=== PATIENT | female | born 1985 | race Caucasian/White ===

== ENCOUNTER 2016-11-16 18:59 | Emergency (ER) | payer OTHER ==
[~2016-11-16] VITALS: Ht 167.6 cm; Wt 105.5 kg
[~2016-11-16 18:59] MED LIST: AMOXICILLIN500 M1 PO; COMPLETENATE T1 EACH; CYMBALTA20 MG PO; FIORICET,ESG1 TABLET PO; FLONASE16 G1 BOTH NARES; Feosol PO; INDOCIN50 MG PO; LORTAB 5-325 M1 EACH PO; MOTRIN600 MG PO; MUCINEX600 MG PO; Motrin PO; NAPROSYN500 MG PO; NAPROXEN375 MG PO; NAPROXEN500 MG PO; NOHOMEMEDS; NORCO 7.5/321 TABLET PO; PEN-VEE K,VEET500 MG PO; PREDNISONE20 MG PO; PROMETHAZINE HC25 M1 PO; TESSALON PERLE100 MG PO; ULTRAM50 MG PO; VALIUM5 MG PO
[2016-11-16 23:11] LABS: MCH 29.6 PG (29.0-34.0); MCHC 33.9 G/DL (30.0-36.0); MCV 87.2 FL (83-99); MEAN PLAT.VOLUME 9.5 uM^3 (9.5-12.4); PLATELET COUNT 236 K/uL (156-360); RBC DIS.WIDTH-CV 13.3 % (11.8-14.6); RBC DIS.WIDTH-SD 40.9 % (39-53); RED BLOOD COUNT 3.21 M/uL (3.80-5.20); WHITE BLOOD COUNT 7.5 K/uL (4.1-10.2)
[2016-11-16 23:23] LABS: CHLORIDE 97 mEq/L (99-109); POTASSIUM 2.9 mEq/L (3.7-5.4); SODIUM 133 mEq/L (136-147)
[2016-11-16 23:24] LABS: GLUCOSE 117 mg/dL (70-99)
[2016-11-16 23:26] LABS: ANION GAP 12 MEQ/L (2-14)
[2016-11-16 23:28] LABS: GFR ESTIMATE (CALCULATED) > 59 mL/min/
[2016-11-16 23:29] LABS: UREA NITROGEN (BUN) 13 mg/dL (9-23)
[2016-11-17] MEDS ORDERED: FLEXERIL10 MG PO (00:14)
[2016-11-17] MEDS ORDERED: MOTRIN800 MG PO (00:34)
[2016-11-17 00:44] VITALS: BP 100/66
== END 2016-11-17 00:47 | disposition home or self-care (01) ==
LOC: EME 18:59 → EXP 18:59
PROVIDERS: Emergency Medicine
DX: M79.662 Pain in left lower leg (principal); E87.6 Hypokalemia; M25.512 Pain in left shoulder; T24.039 Burn of unspecified degree of unspecified lower leg; S90.81 Abrasion of foot; S70.01XD Contusion of right hip, subsequent encounter; S30.1XXD Contusion of abdominal wall, subsequent encounter; S80.12XD Contusion of left lower leg, subsequent encounter; S90 Superficial injury of ankle, foot and toes; V49.9XXD Car occupant (driver) (passenger) injured in unspecified traffic accident, subsequent encounter; Z48.00 Encounter for change or removal of nonsurgical wound dressing
CPT/HCPCS: 73030; 73630; 80048; 85027; 87040; 99281; 99284

== ENCOUNTER 2016-11-23 20:23 | Inpatient (IN) | payer OTHER ==
[~2016-11-23] VITALS: Ht 165.1 cm; Wt 109.5 kg
[~2016-11-23 20:23] MED LIST changes: +FLEXERIL10 MG PO; +MOTRIN800 MG PO
[2016-11-23] MEDS ORDERED: OXAYDO5 MG PO (21:02)
[2016-11-23] MEDS ORDERED: IBUPROFEN800 MG PO (22:01)
[2016-11-23] MEDS ORDERED: FLEXERIL10 MG PO (22:01)
[2016-11-23 22:10] LABS: EOSINOPHIL (%) 1.3 % (0-5); EOSINOPHIL COUNT 0.1 K/uL (0-0.3); HEMATOCRIT 26.5 % (36.0-46.0); IMMATURE GRANULOCYTE (%) 0.3 % (0.0-0.7); IMMATURE GRANULOCYTE COUNT 0.3 K/uL; LYMPHOCYTE COUNT 1.8 K/uL (1.0-2.8); MCH 29.6 PG (29.0-34.0); MCHC 32.5 G/DL (30.0-36.0); MCV 91.1 FL (83-99); MONOCYTE (%) 5.2 % (3-12); MONOCYTE COUNT 0.5 K/uL (0-0.8); NEUTROPHIL (%) 72.2 % (45-76); NEUTROPHIL COUNT 6.3 K/uL (1.8-6.4); RBC DIS.WIDTH-CV 14.3 % (11.8-14.6); RBC DIS.WIDTH-SD 44.1 % (39-53); RED BLOOD COUNT 2.91 M/uL (3.80-5.20); WHITE BLOOD COUNT 8.7 K/uL (4.1-10.2)
[2016-11-23 22:11] LABS: MEAN PLAT.VOLUME 8.5 uM^3 (9.5-12.4); PLATELET COUNT 357 K/uL (156-360)
[2016-11-23 22:18] LABS: CHLORIDE 105 mEq/L (99-109)
[2016-11-23 22:20] LABS: GLUCOSE 105 mg/dL (70-99)
[2016-11-23 22:21] LABS: ANION GAP 12 MEQ/L (2-14)
[2016-11-23 22:24] LABS: GFR ESTIMATE (CALCULATED) > 59 mL/min/
[2016-11-23 22:25] LABS: UREA NITROGEN (BUN) 18 mg/dL (9-23)
[2016-11-23 22:41] LABS: POTASSIUM 3.7 mEq/L (3.7-5.4); SODIUM 140 mEq/L (136-147)
[2016-11-24] VITALS (9 sets, daily range): BP systolic 107–127; BP diastolic 51–70
[2016-11-24 13:41] LABS: HEMATOCRIT 23.4 % (36.0-46.0); MCV 91.1 FL (83-99)
[2016-11-25 05:39] LABS: EOSINOPHIL (%) 0.7 % (0-5); EOSINOPHIL COUNT 0.1 K/uL (0-0.3); HEMATOCRIT 24.4 % (36.0-46.0); IMMATURE GRANULOCYTE (%) 0.4 % (0.0-0.7); LYMPHOCYTE COUNT 1.9 K/uL (1.0-2.8); MCH 29.6 PG (29.0-34.0); MCHC 32.8 G/DL (30.0-36.0); MCV 90.4 FL (83-99); MEAN PLAT.VOLUME 8.8 uM^3 (9.5-12.4); MONOCYTE (%) 6.4 % (3-12); MONOCYTE COUNT 0.5 K/uL (0-0.8); NEUTROPHIL (%) 69.3 % (45-76); NEUTROPHIL COUNT 5.6 K/uL (1.8-6.4); PLATELET COUNT 268 K/uL (156-360); RBC DIS.WIDTH-CV 14.7 % (11.8-14.6); WHITE BLOOD COUNT 8.1 K/uL (4.1-10.2)
[2016-11-25 06:03] LABS: ANION GAP 8 MEQ/L (2-14); CHLORIDE 109 MEQ/L (99-109); GFR ESTIMATE (CALCULATED) > 59 mL/min/; GLUCOSE 101 mg/dL (70-99); IRON 39 MCG/DL (35-150); MAGNESIUM 2.1 mg/dl (1.3-2.7); SAMPLE HEMOLYSIS CHECK 0; SAMPLE ICTERIC CHECK 0; SAMPLE LIPEMIA CHECK 0; SODIUM 143 MEQ/L (136-147); UREA NITROGEN (BUN) 13 mg/dL (9-23)
[2016-11-25 07:39] VITALS: BP 126/69
[2016-11-25 09:51] LABS: FERRITIN 56 NG/ML (10-291)
[2016-11-25 15:53] VITALS: BP 115/58
[2016-11-25 17:27] LABS: METH RESISTANT S AUREUS PCR NEGATIVE (NEGATIVE)
[2016-11-25 17:28] LABS: PROBE CHECK PASS; SPECIMEN PROCESSING CONTROL PASS
[2016-11-25 20:35] VITALS: BP 126/60
[2016-11-25 23:16] VITALS: BP 106/58
[2016-11-26 06:03] LABS: ANION GAP 8 MEQ/L (2-14); CHLORIDE 104 MEQ/L (99-109); GFR ESTIMATE (CALCULATED) > 59 mL/min/; GLUCOSE 82 mg/dL (70-99); POTASSIUM 3.9 MEQ/L (3.7-5.4); SAMPLE HEMOLYSIS CHECK 0; SAMPLE ICTERIC CHECK 0; SAMPLE LIPEMIA CHECK 0; SODIUM 139 MEQ/L (136-147); UREA NITROGEN (BUN) 12 mg/dL (9-23)
[2016-11-26 06:10] LABS: HEMATOCRIT 25.1 % (36.0-46.0); MCH 29.6 PG (29.0-34.0); MCHC 32.7 G/DL (30.0-36.0); MCV 90.6 FL (83-99); MEAN PLAT.VOLUME 9.1 uM^3 (9.5-12.4); PLATELET COUNT 257 K/uL (156-360); RBC DIS.WIDTH-CV 15.2 % (11.8-14.6); RBC DIS.WIDTH-SD 49.2 % (39-53); RED BLOOD COUNT 2.77 M/uL (3.80-5.20)
[2016-11-26 06:11] LABS: WHITE BLOOD COUNT 5.6 K/uL (4.1-10.2)
[2016-11-26 11:21] VITALS: BP 114/68
[2016-11-26 16:06] VITALS: BP 101/50
[2016-11-27] VITALS: BP 117/69
[2016-11-27 08:00] VITALS: BP 120/62
[2016-11-27] MEDS ORDERED: KEFLEX500 MG PO (11:05)
[2016-11-27 16:00] VITALS: BP 118/64
[2016-11-27 23:13] VITALS: BP 114/62
[2016-11-28 04:00] VITALS: BP 142/65
[2016-11-28 07:20] VITALS: BP 110/63
[2016-11-28 15:04] VITALS: BP 110/64
[2016-11-29 00:20] VITALS: BP 112/59
[2016-11-29 08:24] VITALS: BP 108/61
[2016-11-29 12:26] VITALS: BP 108/61
== END 2016-11-29 17:45 | disposition home health service (06) | DRG 263 ==
LOC: EME 20:23 → 3EAST 11-24 02:37 → EDOF 11-24 02:37 → 3EAST 11-24 03:41
PROVIDERS: Emergency Medicine; Hospitalist; Internal Medicine; Internal Medicine Infectious Disease; Surgery
PROC: 30233N1 Transfusion of Nonautologous Red Blood Cells into Peripheral Vein, Percutaneous Approach (ICD-10-PCS; principal; 2016-11-24)
PROC: 0JBP0ZZ Excision of Left Lower Leg Subcutaneous Tissue and Fascia, Open Approach (ICD-10-PCS; principal; 2016-11-24)
PROC: 06BQ0ZZ Excision of Left Saphenous Vein, Open Approach (ICD-10-PCS; principal; 2016-11-24)
DX: I96 Gangrene, not elsewhere classified (principal); L03.116 Cellulitis of left lower limb; B95.61 Methicillin susceptible Staphylococcus aureus infection as the cause of diseases classified elsewhere; B96.89 Other specified bacterial agents as the cause of diseases classified elsewhere; D62 Acute posthemorrhagic anemia; I82.812 Embolism and thrombosis of superficial veins of left lower extremity; E66.01 Morbid (severe) obesity due to excess calories; Z68.41 Body mass index [BMI] 40.0-44.9, adult; F31.9 Bipolar disorder, unspecified; F11.10 Opioid abuse, uncomplicated; S30.1XXD Contusion of abdominal wall, subsequent encounter; S46.812D Strain of other muscles, fascia and tendons at shoulder and upper arm level, left arm, subsequent encounter
CPT/HCPCS: 73590; 73701; 80048; 80202; 82728; 83540; 83605; 83735; 85014; 85018; 85025; 85027; 85651; 86850; 86900; 86901; 86920; 87040; 87070; 87075; 87077; 87147; 87186; 87205; 87641; 88305; 93971; 97530 GO; 99281; 99285; J0690; J1100; J1170; J1644; J2250; J2405; J2543; J3010; J3370; J7030; J7120; P9016; S0020

== ENCOUNTER 2016-12-30 20:24 | Emergency (ER) | payer OTHER ==
[~2016-12-30] VITALS: Ht 165.1 cm; Wt 105.9 kg
[~2016-12-30 20:24] MED LIST changes: +IBUPROFEN800 MG PO; +KEFLEX500 MG PO; +OXAYDO5 MG PO
[2016-12-30 20:56] LABS: EOSINOPHIL (%) 1.3 % (0-5); EOSINOPHIL COUNT 0.1 K/uL (0-0.3); HEMATOCRIT 33.7 % (36.0-46.0); IMMATURE GRANULOCYTE (%) 0.1 % (0.0-0.7); IMMATURE GRANULOCYTE COUNT 0.1 K/uL; LYMPHOCYTE COUNT 2.5 K/uL (1.0-2.8); MCH 28.8 PG (29.0-34.0); MCHC 32.6 G/DL (30.0-36.0); MCV 88.2 FL (83-99); MEAN PLAT.VOLUME 9.6 uM^3 (9.5-12.4); MONOCYTE (%) 5.6 % (3-12); MONOCYTE COUNT 0.4 K/uL (0-0.8); NEUTROPHIL (%) 55.1 % (45-76); NEUTROPHIL COUNT 3.7 K/uL (1.8-6.4); PLATELET COUNT 228 K/uL (156-360); RBC DIS.WIDTH-CV 13.1 % (11.8-14.6); RBC DIS.WIDTH-SD 40.9 % (39-53); RED BLOOD COUNT 3.82 M/uL (3.80-5.20)
[2016-12-30 21:01] LABS: WHITE BLOOD COUNT 6.8 K/uL (4.1-10.2)
[2016-12-30 21:05] LABS: CHLORIDE 109 mEq/L (99-109); POTASSIUM 3.7 mEq/L (3.7-5.4); SODIUM 141 mEq/L (136-147)
[2016-12-30 21:06] LABS: GLUCOSE 87 mg/dL (70-99)
[2016-12-30 21:08] LABS: ANION GAP 8 MEQ/L (2-14)
[2016-12-30 21:10] LABS: GFR ESTIMATE (CALCULATED) > 59 mL/min/
[2016-12-30 21:11] LABS: UREA NITROGEN (BUN) 18 mg/dL (9-23)
[2016-12-30] MEDS ORDERED: KEFLEX500 MG PO (22:12)
[2016-12-30 22:17] VITALS: BP 98/52
== END 2016-12-30 22:22 | disposition home or self-care (01) ==
LOC: EME 20:24
PROVIDERS: Emergency Medicine
DX: T81.89XA Other complications of procedures, not elsewhere classified, initial encounter (principal); F31.9 Bipolar disorder, unspecified
CPT/HCPCS: 80048; 83605; 85025; 87040; 99281; 99284

== ENCOUNTER 2017-01-01 08:48 | Day surgery (SDC) | payer OTHER ==
[~2017-01-01] VITALS: Ht 165.1 cm; Wt 97.5 kg
[2017-01-01] MEDS ORDERED: IBUPROFEN800 MG PO (09:34)
[2017-01-01 09:57] VITALS: BP 110/63
[2017-01-01 13:32] VITALS: BP 130/71
[2017-01-01 14:35] VITALS: BP 106/63
[2017-01-01 16:30] VITALS: BP 105/59
== END 2017-01-01 16:45 | disposition home or self-care (01) ==
LOC: SDC 08:48
PROC: 0HBLXZZ Excision of Left Lower Leg Skin, External Approach (ICD-10-PCS; principal; 2017-01-01)
PROC: 0HRLXJ4 Replacement of Left Lower Leg Skin with Synthetic Substitute, Partial Thickness, External Approach (ICD-10-PCS; principal; 2017-01-01)
PROC: 0HRLX74 Replacement of Left Lower Leg Skin with Autologous Tissue Substitute, Partial Thickness, External Approach (ICD-10-PCS; principal; 2017-01-01)
DX: S81.802A Unspecified open wound, left lower leg, initial encounter (principal); V49.9XXA Car occupant (driver) (passenger) injured in unspecified traffic accident, initial encounter
CPT/HCPCS: C1763; J0131; J0690; J1100; J1170; J1885; J2175; J2250; J2405; J3010

== ENCOUNTER 2017-01-05 15:54 | Emergency (ER) | payer OTHER ==
[~2017-01-05] VITALS: Ht 165.1 cm; Wt 100.9 kg
[2017-01-05 19:02] VITALS: BP 117/72
== END 2017-01-05 19:03 | disposition home or self-care (01) ==
LOC: EME 15:54
DX: T85.698A Other mechanical complication of other specified internal prosthetic devices, implants and grafts, initial encounter (principal); S81.802D Unspecified open wound, left lower leg, subsequent encounter; X58.XXXD Exposure to other specified factors, subsequent encounter; Z48.01 Encounter for change or removal of surgical wound dressing; Z94.5 Skin transplant status
CPT/HCPCS: 99281; 99284

== ENCOUNTER 2017-04-08 20:13 | Emergency (ER) | payer OTHER ==
[~2017-04-08] VITALS: Ht 165.1 cm; Wt 102.3 kg
[2017-04-08 21:22] LABS: HEMATOCRIT 35.3 % (36.0-46.0); MCH 27.5 PG (29.0-34.0); MCHC 32.3 G/DL (30.0-36.0); MCV 85.3 FL (83-99); MEAN PLAT.VOLUME 9.9 uM^3 (9.5-12.4); PLATELET COUNT 186 K/uL (156-360); RBC DIS.WIDTH-SD 46.9 % (39-53); RED BLOOD COUNT 4.14 M/uL (3.80-5.20); WHITE BLOOD COUNT 6.5 K/uL (4.1-10.2)
[2017-04-08 21:31] LABS: CHLORIDE 107 mEq/L (99-109); POTASSIUM 3.8 mEq/L (3.7-5.4); SODIUM 138 mEq/L (136-147)
[2017-04-08 21:34] LABS: GLUCOSE 82 mg/dL (70-99)
[2017-04-08 21:35] LABS: ANION GAP 11 MEQ/L (2-14)
[2017-04-08 21:36] LABS: TOTAL BILIRUBIN 1.1 mg/dL (0.0-1.0)
[2017-04-08 21:37] LABS: ALKALINE PHOSPHATASE 56 IU/L (3-129); GFR ESTIMATE (CALCULATED) > 59 mL/min/
[2017-04-08 21:38] LABS: UREA NITROGEN (BUN) 16 mg/dL (9-23)
[2017-04-08 21:51] LABS: QUANTITATIVE HCG < 4.0 MIU/ML
[2017-04-09 00:44] LABS: ADD MIUA? YES; BILIRUBIN NEGATIVE; BLOOD NEGATIVE; COLOR AMBER ((YELLOW)); GLUCOSE (STRIP) NEGATIVE; KETONES NEGATIVE; LEUKOCYTES NEGATIVE; NITRITE NEGATIVE; PROTEIN (STRIP) 30; SPECIFIC GRAVITY 1.031 (1.000-1.030); UROBILINOGEN 0.2 MG/DL (0.2-1.0)
[2017-04-09 02:04] LABS: BACTERIA 3+ /HPF; EPITHELIAL CELLS 2+ /HPF; MUCUS 1+ /LPF; RED BLOOD CELLS NONE SEEN /HPF (0-5); UCUL ADDED? NO; WHITE BLOOD CELLS NONE SEEN /HPF (0-5)
[2017-04-09 02:27] VITALS: BP 111/56
== END 2017-04-09 02:27 | disposition home or self-care (01) ==
LOC: EME 20:13
DX: J06.9 Acute upper respiratory infection, unspecified (principal); J02.9 Acute pharyngitis, unspecified; R50.9 Fever, unspecified
CPT/HCPCS: 71020; 80053; 81003; 84702; 85027; 87651 90; 93005; 99281; 99283